=== PATIENT | male | born 1995 | race Caucasian/White ===

== ENCOUNTER 2017-01-09 07:59 | Day surgery (SDC) | payer OTHER ==
[~2017-01-09] VITALS: Ht 182.9 cm; Wt 66.0 kg
[~2017-01-09 07:59] MED LIST: FLEXERIL10 MG PO; IBUPROFEN800 MG PO
[2017-01-09 08:21] VITALS: BP 120/86
[2017-01-09 14:34] VITALS: BP 117/59
[2017-01-09 14:44] VITALS: BP 111/65
[2017-01-09 15:16] VITALS: BP 118/60
== END 2017-01-09 15:20 | disposition home or self-care (01) ==
LOC: SDC 07:59
DX: S83.242A Other tear of medial meniscus, current injury, left knee, initial encounter (principal); S83.512A Sprain of anterior cruciate ligament of left knee, initial encounter; X50.0XXA Overexertion from strenuous movement or load, initial encounter; Y93.55 Activity, bike riding; Y92.007 Garden or yard of unspecified non-institutional (private) residence as the place of occurrence of the external cause
CPT/HCPCS: C1713; J0131; J0690; J1100; J1170; J2250; J2405; J2765; J2795; J3010; Q0175